=== PATIENT | female | born 1950 | race Hispanic/Latino ===

== ENCOUNTER 2017-04-27 11:09 | Day surgery (SDC) | payer MEDICARE ==
[2017-04-27 11:42] VITALS: BP 112/70
[2017-04-27] MEDS ORDERED: MYDRIACYL ONE (11:58)
[2017-04-27] MEDS ORDERED: IOPIDINE ONE (11:58)
[2017-04-27] MEDS ORDERED: NEOFRIN ONE (11:59)
[2017-04-27] MEDS ORDERED: IOPIDINE OS ONE (12:03)
[2017-04-27] MEDS ORDERED: NEOFRIN OS ONE (12:03)
[2017-04-27] MEDS ORDERED: MYDRIACYL OS ONE (12:03)
== END 2017-04-27 12:55 | disposition home or self-care (01) ==
LOC: OR 11:09
PROVIDERS: ATTEND Ophthalmology
DX: H26.492 Other secondary cataract, left eye (principal)